=== PATIENT | male | born 2000 | race African-American/Black ===

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

== ENCOUNTER 2021-10-19 17:06 | Emergency (ER) | payer OTHER, SELFPAY ==
[2021-10-19 18:10] LABS: #Basophils 0.1 thou/uL (0.0-0.2); #Eosinphils 0.1 thou/uL (0.0-0.7); #Lymphocytes 2.3 thou/uL (1.20-3.40); #Monocytes 0.5 thou/uL (0.11-0.59); #Neutrophils 5.6 thou/uL (1.40-6.50); %Basophils 0.6 % (0.0-1.0); %Eosinophils 1.6 % (0.0-10.0); %Lymphocytes 26.6 % (21.0-51.0); %Monocytes 6.3 % (0.0-10.0); %Neutrophils 64.9 % (42.0-75.0); Hemoglobin 14.5 g/dL (14.0-18.0); Mean Corpuscular HGB CONC 31.7 g/dL (32.0-36.0); Mean Corpuscular Hemoglobin 27.1 pg (27.0-31.0); Mean Corpuscular Volume 85.3 fL (78.0-98.0); Mean Platelet Volume 7.5 fL (7.4-10.4); Platelet Count 286 thou/uL (130-400); RBC Distribution Width 12.7 % (11.5-14.5); Red Blood Cell (RBC) Count 5.35 mill/uL (4.70-6.10); White Blood Cell (WBC) Count 8.6 thou/uL (4.8-10.8)
[2021-10-19] MEDS ORDERED: Dicyclomine 20 MG TAB ONE (18:22)
[2021-10-19] MEDS ORDERED: Ketorolac Tromethamine 30 MG/ML VIAL ONE (18:22)
[2021-10-19] MEDS ORDERED: Acetaminophen 500 MG TAB ONE (18:22)
[2021-10-19 18:34] LABS: ALT (SGPT) 24 U/L (8-55); AST (SGOT) 21 U/L (5-34); Albumin 4.1 g/dL (3.5-5.0); Alkaline Phosphatase 91 U/L (40-110); Anion Gap 10 mmol/L (10-20); BUN (Urea Nitrogen) 8 mg/dL (8.9-20.6); Bilirubin, Total 0.3 mg/dL (0.2-1.2); Calc. Creatinine Clearance 0 mL/min (70-130); Calcium 9.5 mg/dL (7.8-10.44); Carbon Dioxide 28 mmol/L (22-29); Chloride 104 mmol/L (98-107); Globulin 3.3 g/dL (2.4-3.5); Glucose 100 mg/dL (70-105); Lipase 16 U/L (8-78); Potassium 4.4 mmol/L (3.5-5.1); Protein, Total 7.4 g/dL (6.0-8.3); Sodium 138 mmol/L (136-145)
[2021-10-19] MEDS ORDERED: HYDROcodone/Acetaminophen 5/325 mg Tablet ONE (18:41)
== END 2021-10-19 19:15 | disposition home or self-care (01) ==
LOC: ERS 17:06
DX: R51.9 Headache, unspecified (principal); R19.7 Diarrhea, unspecified
CPT/HCPCS: 36415; 80053; 83690; 85025; 96372; 99284; J1885

== ENCOUNTER 2022-10-28 11:13 | Emergency (ER) | payer BC, SELFPAY ==
[2022-10-28] MEDS ORDERED: Dicyclomine 20 MG/2 ML VIAL ONE (13:20)
== END 2022-10-28 14:45 | disposition home or self-care (01) ==
LOC: ERS 11:13
DX: R19.7 Diarrhea, unspecified (principal)
CPT/HCPCS: 96372; 99283